=== PATIENT | female | born 1965 | race Two or more races ===

== ENCOUNTER 2017-03-23 15:03 | Emergency (ER) | payer MEDICAID, OTHER ==
[~2017-03-23] VITALS: Ht 154.9 cm; Wt 77.1 kg
[2017-03-23 16:25] VITALS: BP 106/91
[2017-03-23] MEDS ORDERED: IPRATROPIUM BROM 0.5 MG/2.5ML INH SOL NEB ONE (17:45)
[2017-03-23] MEDS ORDERED: ALBUTEROL SULF 2.5 MG/0.5ML(0.5%) NEB SOLN NEB ONE (17:45)
== END 2017-03-23 18:19 | disposition home or self-care (01) ==
LOC: ER 15:16
DX: J20.9 Acute bronchitis, unspecified (principal)
CPT/HCPCS: 71046; 94640